=== PATIENT | female | born 1985 | race African-American/Black ===

== ENCOUNTER 2021-06-19 20:40 | Emergency (ER) | payer OTHER, SELFPAY ==
--- NOTE | ~2021-06-19 | XR_ITS ---
XR_[id number]_CR DATE: 06/19/2021 22:29 INDICATION: Left-sided neck pain radiating to arm TECHNIQUE: AP, open-mouth, lateral views COMPARISON: None FINDINGS: There is a reversal cervical curvature. C1 and C2 are normally aligned and the odontoid pro cess is intact. No fracture or dislocation or locked facet or prevertebral soft tissue swelling. Cerv ical interspaces are preserved. IMPRESSION: Reversal cervical curvature, which may be secondary to muscle spasm No fracture or dislocation Reviewed, dictated and finalized at [facility] Reviewed, dictated and finalized at [facility].
--- NOTE | ~2021-06-19 | XR_ITS ---
XR shoulder LT min 2V DATE: 06/19/2021 22:29 INDICATION: Left shoulder pain, tenderness with rotation. TECHNIQUE: 4 views COMPARISON: None FINDINGS: There is mild degenerative change at the left, clavicular joint. No fracture or dislocation, periosteal reaction or bone destruction or significant abnormal soft tiss ue calcification is detected. IMPRESSION: Mild degenerative change at the left acromioclavicular joint Reviewed, dictated and finalized at [facility].
[2021-06-19 20:54] VITALS: BP 150/92; PULSE 93; RESP 18; TEMP 36.6; O2SAT 100
--- NOTE | 2021-06-19 22:05 | ED.GENADULT ---
HPI - General Adult General Chief complaint: Unspecified <KAREL Neely Last Filed: 06/20/21 04:36> Stated complaint: neck pain, left arm pain <KAREL Neely Last Filed: 06/20/21 04:36> Time Seen by Provider: 06/19/21 21:19 <KAREL Neely Last Filed: 06/20/21 04:36> Source: patient <KAREL Neely Last Filed: 06/20/21 04:36> Mode of arrival: ambulatory <KAREL Neely Last Filed: 06/20/21 04:36> Limitations: no limitations <KAREL Neely Last Filed: 06/20/21 04:36> History of Present Illness HPI narrative: Patient is a 36-year-old female who presents the ED with complaints of left sided neck and shoulder pain radiating down her left arm x 3 -4 days. 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 She reports having worsening pain with lifting her left upper extremity above her head. She has tried taking naproxen at home with some relief. She has not taken anything for pain tonight. Patient denies any weakness, back pain, chest pain, shortness of breath, numbness tingling in her arms, fever, chills, nausea, vomiting. <KAREL Neely Last Filed: 06/20/21 04:36> Related Data Allergies/adverse reactions: Allergies Allergy/AdvReac Type Severity Reaction Status Date / Time amlodipine Allergy Swelling Verified 06/19/21 21:37 of Lip/Tongue/Throat <KAREL Neely Last Filed: 06/20/21 04:36> Review of Systems Review of Systems: CONSTITUTIONAL: Denies fever, chills, or sweats. CARDIOVASCULAR: Denies chest pain. RESPIRATORY: Denies dyspnea. GASTROINTESTINAL: Denies nausea, vomiting. MUSCULOSKELETAL: Reports left-sided neck pain, left shoulder pain, left arm pain. Denies back pain. NEUROLOGIC: Denies headache, numbness/tingling, or weakness. <Suyapa Jacobson PA-C - Last Filed: 06/20/21 04:36> All systems reviewed & are unremarkable except as noted in HPI and below <Suyapa Jacobson PA-C - Last Filed: 06/20/21 04:36> PMFSH Past Medical History Medical History: Medical History (Updated 06/20/21 @ 00:15 by Suyapa Jacobson PA-C) Diabetes mellitus Hyperlipidemia Hypertension <Suyapa Jacobson PA-C - Last Filed: 06/20/21 04:36> Surgical History Surgical History: Surgical History (Updated 06/19/21 @ 22:06 by Suyapa Jacobson PA-C) No pertinent past surgical history <Suyapa Jacobson PA-C - Last Filed: 06/20/21 04:36> Social History Social History: Social History (Updated 06/19/21 @ 22:06 by Suyapa Jacobson PA-C) Smoking packs per day: 10 Smoking cigarettes per day: 200.0 Smoking status: Current every day smoker Tobacco type: cigarettes <Suyapa Jacobson PA-C - Last Filed: 06/20/21 04:36> Exam Narrative: GENERAL: Well appearing, well-nourished, non-toxic, in no acute distress. HEAD: Normocephalic, atraumatic. NECK: Supple. No adenopathy. Left-sided cervical paraspinal tenderness to palpation. No midline cervical spinal tenderness. Normal range of motion. No meningeal signs. RESPIRATORY: Airway patent, respirations nonlabored. Clear to auscultation bilaterally, no rales, rhonchi, wheezing. CARDIOVASCULAR: Regular rate and rhythm without murmurs, rubs, or gallops. Radial pulses 2+ and equal bilaterally. MUSCULOSKELETAL: Moves all extremities. Limited active range of motion past 90 degrees abduction of left upper extremity due to pain. Up to 130 degrees of abduction with PROM, but some pain with this. Tenderness to palpation over anterior superior left shoulder. No tenderness palpation of humerus or lower left arm. No gross deformities. Sensation intact of left upper extremity. SKIN: Warm, dry, normal color. No rashes. NEURO: A&O X3. Speech clear. Cranial nerves II-XII grossly intact. Steady gait. No ataxic movements. PSYCHIATRIC: Appropriate mood and affect. Normal interaction. <Suyapa Jacobson P
--- NOTE | 2021-06-19 22:09 | ECG_ITS ---
Measurements Intervals Leslie Rate: 72 P: 33 IL: 172 QRS: 31 QRSD: 85 T: 26 QT: 386 QTc: 425 Interpretive Statements SINUS RHYTHM POOR R WAVE PROGRESSION NO PREVIOUS ECG AVAILABLE FOR COMPARISON Electronically Signed On 06-20-2021 18:11:53 CDT by Kerri Lazo M.D.
[2021-06-19] MEDS: KETOROLAC (*BKC) 60 MG/2 ML VIAL IM (22:34)
== END 2021-06-20 00:36 | disposition home or self-care (01) ==
PROVIDERS: Emergency Provider Emergency Medicine
DX: M54.12 Radiculopathy, cervical region (principal); E11.9 Type 2 diabetes mellitus without complications; E78.5 Hyperlipidemia, unspecified; I10 Essential (primary) hypertension; F17.210 Nicotine dependence, cigarettes, uncomplicated
CPT/HCPCS: 72040; 73030; 93005; 96372; 99284; J1885

== ENCOUNTER 2022-07-27 16:43 | Emergency (ER) | payer BC, SELFPAY ==
[2022-07-27 16:52] VITALS: BP 193/91; PULSE 108; RESP 15; TEMP 36.6; O2SAT 99
--- NOTE | 2022-07-27 17:42 | ED.DENTAL ---
HPI - Dental/Oral General Chief complaint: Dental/Oral <Temitope Benitez PA-C - Last Filed: 07/28/22 00:21> Stated complaint: facial swelling <Temitope Benitez PA-C - Last Filed: 07/28/22 00:21> Time Seen by Provider: 07/27/22 17:23 <Temitope Benitez PA-C - Last Filed: 07/28/22 00:21> History of Present Illness HPI Narrative: 37-year-old female with a history of diabetes, hypertension and hyperlipidemia reports for evaluation of right lower dental pain and mandibular swelling for 1 day. She reports she had her tooth filled over this exact location multiple years ago and since then has had an infection 3 times since. States she usually gets around of antibiotics and it resolves. She currently does not have a dentist. Patient is also asking for STD testing. She reports she has been having unprotected sex and is worried she has an STD. Denies dysuria or urinary complaints, vaginal discharge or bleeding, abdominal pain. LMP in the beginning of the month. She denies sore throat, difficulty swallowing, trismus, fever, bodies, chills. <Temitope Benitez PA-C - Last Filed: 07/28/22 00:21> Related Data Allergies/adverse reactions: Allergies Allergy/AdvReac Type Severity Reaction Status Date / Time amlodipine Allergy Swelling Verified 06/19/21 21:37 of Lip/Tongue/Throat <Temitope Benitez PA-C - Last Filed: 07/28/22 00:21> Review of Systems Review of Systems: CONSTITUTIONAL: Denies fever, chills EYES: Denies visual changes, redness, or discharge. ENT: Denies rhinorrhea, congestion, sore throat, or otalgia. CARDIOVASCULAR: Denies chest pain, palpitations, or edema. RESPIRATORY: Denies cough or dyspnea. GASTROINTESTINAL: Denies abdominal pain, nausea, vomiting, or diarrhea. GENITOURINARY: Denies dysuria or hematuria. SKIN: Denies rash or itching. MUSCULOSKELETAL: Denies back pain, joint pain, or myalgia. NEUROLOGIC: Denies headache, numbness, dizziness, or weakness. PSYCHIATRIC: Denies anxiety or depression. <Temitope Benitez PA-C - Last Filed: 07/28/22 00:21> [facility] Past Medical History Medical History: Medical History Diabetes mellitus Hyperlipidemia Hypertension <Temitope Benitez PA-C - Last Filed: 07/28/22 00:21> Surgical History Surgical History: Surgical History No pertinent past surgical history <Temitope Benitez PA-C - Last Filed: 07/28/22 00:21> Social History Social History: Social History Smoking packs per day: 10 Smoking cigarettes per day: 200.0 Smoking status: Current every day smoker Tobacco type: cigarettes <Temitope Benitez PA-C - Last Filed: 07/28/22 00:21> Exam Narrative: GENERAL: Well-appearing, well-nourished, and in no acute distress. Patient resting comfortably in exam bed. She is pleasant and conversational. HEAD: Normocephalic, atraumatic. EYES: PERRLA and EOMI. ENT: Nares clear, no rhinorrhea or epistaxis. Mucous membranes moist. Feeling to tooth #27 with tenderness to surrounding gingiva and buccal mucosa. There is mandibular swelling noted to the right lower cheek and mandible with small area of induration, no fluctuation. Floor of mouth is soft without crepitus. No trismus. Patient tolerating secretions. Oropharynx without tonsillar hypertrophy exudate or other lesions. Bilateral TMs pearly martinez nonbulging. NECK: Supple. No adenopathy or masses. CHEST: Clear to auscultation. No respiratory distress. No wheezes rales or rhonchi HEART: Regular rate and rhythm. No murmur heard. Normal peripheral pulses. ABDOMEN: Soft, nontender, nondistended, normal active bowel sounds. : No lesions or rashes to external genitalia, vagina or cervix. Cervical os closed. Moderate amount of milky white discharge in vaginal vault. No cervical motion tende
[2022-07-27] MEDS: cefTRIAXone 1 GM VIAL 0.5 GM IM (17:52)
[2022-07-27] MEDS: metroNIDAZOLE 250 MG TABLET 2000 MG PO (17:53)
[2022-07-27] MEDS: DOXYCYCLINE HYCLATE 100 MG TABLET PO (17:53)
[2022-07-27] MEDS: HYDROcodone/acetaminophen (*CRX) 5-325 MG TABLET 1 TAB PO (17:53)
[2022-07-27] MEDS: LIDOCAINE HCL 1% LOCAL INJ 10 ML VIAL 2 ML INFILTRATE (17:55)
[2022-07-27] MEDS: ONDANSETRON HCL ODT 4 MG TABLET PO (18:06)
[2022-07-27 18:42] LABS: Add Urine Microscopic? YES; Appearance Urine Clear (Clear); Bacteria Urine 4+ /hpf; Bilirubin Urine Negative (Negative); Blood Urine Negative (Negative); Color Urine Yellow (Yellow); Glucose Urine UA 3+ mg/dL (Negative); Hyaline Casts Urine Present /lpf; Ketones Urine 1+ mg/dL (Negative); Leukocyte Esterase Ur Negative LEU/UL (Negative); Nitrate Urine Positive (Negative); Non Pathogenic Casts 0-2; Protein Urine Negative (Negative); RBC Urine 0-2 /hpf (0-2); Specific Grav Ur 1.042 (1.001-1.035); Squamous Epithelial Cell Urine Moderate /hpf (Few); Urobilinogen Urine 0.2 mg/dL (<2.0)
[2022-07-27 18:52] LABS: Pregnancy On Board Control Positive; Urine Pregnancy Test Negative
[2022-07-27 19:03] VITALS: BP 183/99; PULSE 87; RESP 18; TEMP 36.4; O2SAT 99
[2022-07-27] MEDS: KETOROLAC 30 MG/ML VIAL (*BKC) IM (19:04)
[2022-07-27] MEDS: hydroCHLOROthiazide 25 MG TABLET PO (19:56)
[2022-07-27 20:51] VITALS: BP 178/90; PULSE 84; RESP 18; O2SAT 100
== END 2022-07-27 20:55 | disposition home or self-care (01) ==
PROVIDERS: Emergency Provider Physician Assistant
DX: K04.7 Periapical abscess without sinus (principal); I10 Essential (primary) hypertension; E11.9 Type 2 diabetes mellitus without complications; E78.5 Hyperlipidemia, unspecified; F17.210 Nicotine dependence, cigarettes, uncomplicated; Z11.3 Encounter for screening for infections with a predominantly sexual mode of transmission
CPT/HCPCS: 81001; 81025; 87070; 87077; 87086; 87186; 87491; 87591; 87808; 96372; 99284; A9270; J0696; J1885